=== PATIENT | male | born 1990 | race Caucasian/White ===

== ENCOUNTER → 2021-01-11 17:28 | Outpatient (CLI) | payer OTHER, SELFPAY ==
--- NOTE | 2021-01-11 | DI.MRI.S_ITS ---
PROCEDURE: MR SHOULDER LT WO CON INDICATIONS: pain in left shoulder TECHNIQUE: Noncontrast oblique coronal T2 fast spin echo with fat saturation, oblique sagittal T1 spin echo and T2 fast spin echo with fat saturation, axial T1 spin echo and T2 fast spin echo with fat saturation through the shoulder. COMPARISON: None. FINDINGS: Rotator cuff: Supraspinatus tendinopathy and partial-thickness bursal sided tear of the footprint of the anterior supraspinatus tendon. Infraspinatus and teres minor tendons appear intact. Subscapularis tendinopathy is present with mild thickening. No atrophy of the rotator cuff muscles. Bones and bursae: No bone marrow contusions or fractures. Mild acromioclavicular joint degeneration. Incidentally noted os acromiale. No subacromial-subdeltoid bursitis. Capsule and soft tissues: Labrum: Ill-defined chronic appearing amorphous heterogeneous tear of the anteroinferior labrum, with mild degenerative cystic changes and sclerosis in the adjacent glenoid rim. Additional mild fraying the superior labrum which could be age-appropriate. Long head of the biceps tendon intact. The rotator interval appears normal, without fibrosis. Coracohumeral ligament intact. Incidentally noted enlarged left axillary lymph nodes, nonspecific finding. Production [place] lymph node measures 1.9 x 0.8 cm on image 20/6. IMPRESSION: Tendinopathy and partial-thickness bursal sided tear of the footprint of the anterior supraspinatus tendon. Subscapularis mild tendinopathy and thickening Incidentally noted os acromiale Amorphous heterogeneous appearance of the anteroinferior labrum, with adjacent glenoid rim degenerative changes. This suggests chronic labral tear with subsequent scarring and hypertrophic fibrosis. Incidentally noted enlarged left axillary lymph nodes, nonspecific finding. Recommend clinical correlation. Dictated by: Zack Ramos M.D. on 01/12/2021 at 11:33 Approved by: Zack Ramos M.D. on 01/12/2021 at 11:44
== END ==
PROVIDERS: PCP Student in an Organized Health Care Education/Training Program; Referring Provider Student in an Organized Health Care Education/Training Program; Visit Provider Student in an Organized Health Care Education/Training Program
DX: M25.512 Pain in left shoulder (principal); M75.112 Incomplete rotator cuff tear or rupture of left shoulder, not specified as traumatic; R59.0 Localized enlarged lymph nodes
CPT/HCPCS: 73221